=== PATIENT | female | born 1980 | race Caucasian/White ===

== ENCOUNTER → 2020-12-09 | Outpatient (CLI) | payer BC ==
--- NOTE | 2020-12-09 17:15 | RAD ---
Exam: Right ankle 3 views INDICATION: Right ankle pain, twisted ankle laterally TECHNIQUE: Frontal, lateral and oblique views of the right ankle Comparisons: None FINDINGS: Mild soft tissue swelling overlying the lateral malleolus. Bone mineralization is normal. No acute or healed fractures. Joint spaces are well-maintained. IMPRESSION: Soft tissue swelling overlying the lateral malleolus without underlying osseous abnormality identifie d. Electronically signed by: Bhanu Morse MD (12/09/2020 5:13 PM) JIE
== END ==
LOC: RAD 16:51
PROVIDERS: ATTEND Nurse Practitioner Family
DX: M25.571 Pain in right ankle and joints of right foot (principal); M79.89 Other specified soft tissue disorders
CPT/HCPCS: 73610